=== PATIENT | male | born 1960 | race Caucasian/White ===

== ENCOUNTER 2017-12-13 10:27 | Day surgery (SDC) | payer BC ==
[~2017-12-13 10:27] MED LIST: LACTATED RINGERS 1,000 ML IV SCH
[2017-12-13 10:48] VITALS: RESP 16; TEMP 97.1
[2017-12-13] MEDS ORDERED: LACTATED RINGERS 1,000 ML IV ONE (10:49)
[2017-12-13] MEDS ORDERED: PROPOFOL 10 MG/ML 20 ML VIAL IV ONE (11:15)
--- NOTE | 2017-12-13 11:26 | P.GSHP ---
History of Present Illness H&P Date: 12/13/17 Chief Complaint: GERD This is a 57-year-old male with history of GERD and Rodriguez's esophagus. Patient presents today for EGD. Past Medical History Past Medical History: Asthma, GERD/Reflux, Hyperlipidemia, Osteoarthritis (OA) Additional Past Medical History / Comment(s): SEASONAL ALLERGIES. RODRIGUEZ'S ESOPHAGUS. History of Any Multi-Drug Resistant Organisms: None Reported Past Surgical History: Tonsillectomy Additional Past Surgical History / Comment(s): VASECTOMY Past Anesthesia/Blood Transfusion Reactions: No Reported Reaction Past Psychological History: No Psychological Hx Reported Smoking Status: Light tobacco smoker Past Alcohol Use History: Daily Additional Past Alcohol Use History / Comment(s): QUIT SMOKING CIGARETTES IN 2017, STILL SMOKES PIPE/CIGAR. SMOKED CIGS FOR 20 YRS. Past Drug Use History: None Reported Medications and Allergies Home Medications Medication Instructions Recorded Confirmed Type Albuterol Inhaler [Ventolin Hfa 1 puff INHALATION QID PRN 12/09/17 12/09/17 History Inhaler] Ascorbic Acid [Vitamin C] 1 tab PO DAILY 12/09/17 12/09/17 History Aspirin [Adult Low Dose Aspirin EC] 81 mg PO QAM 12/09/17 12/09/17 History Cholecalciferol [Vitamin D3] 1,000 unit PO DAILY 12/09/17 12/09/17 History Cyanocobalamin [Vitamin B-12] 1 tab PO DAILY 12/09/17 12/09/17 History Fluticasone/Salmeterol [Advair 1 puff INHALATION BID 12/09/17 12/09/17 History 250-50 Diskus] Ginseng 1 tab PO DAILY 12/09/17 12/09/17 History Glucosamine/Chondro Lombardo A [Cosamin 1 tab PO DAILY 12/09/17 12/09/17 History Ds Tablet] Montelukast [Singulair] 10 mg PO QAM 12/09/17 12/09/17 History Multivitamins, Thera [Multivitamin 1 tab PO DAILY 12/09/17 12/09/17 History (formulary)] Naproxen Sodium [Aleve] 440 mg PO QAM 12/09/17 12/09/17 History Omeprazole 40 mg PO QAM 12/09/17 12/09/17 History Selenium 1 tab PO DAILY 12/09/17 12/09/17 History Simvastatin [Simvastatin] 40 mg PO QAM 12/09/17 12/09/17 History Vitamin E 1 tab PO DAILY 12/09/17 12/09/17 History Allergies Allergy/AdvReac Type Severity Reaction Status Date / Time No Known Allergies Allergy Verified 12/09/17 08:12 Surgical - Exam Vital Signs Temp Pulse Resp BP Pulse Ox 97.1 F L 73 16 139/85 99 12/13/17 10:47 12/13/17 10:47 12/13/17 10:47 12/13/17 10:47 12/13/17 10:47 - General well developed, well nourished, no distress - Eyes PERRL - ENT normal pinna - Neck no masses - Respiratory normal expansion - Cardiovascular Rhythm: regular - Abdomen Abdomen: soft, non tender Assessment and Plan Assessment: GERD. We'll perform EGD.
--- NOTE | 2017-12-13 11:35 | P.OP ---
Date of Procedure: 12/13/17 Preoperative Diagnosis: GERD Postoperative Diagnosis: Mild antral gastritis Mild esophagitis No evidence of hiatal hernia Procedure(s) Performed: EGD Anesthesia: MAC Surgeon: Dileep Thompson Pathology: other (Antrum, esophagus) Condition: stable Disposition: PACU Description of Procedure: The patient's placed on the endoscopy table lateral position. He received IV sedation. The gastroscope was placed oropharynx and passed in the esophagus into the stomach. Scope was then placed through the pylorus. The first second portion of duodenum appeared normal. Scope was then brought back the antrum this. Mildly inflamed. A biopsies performed. The scope was retroflexed and remainder stomach appeared normal. There is no evidence of a hiatal hernia. The GE junction was at 40 cm. The distal esophagus was mildly inflamed a biopsies performed. The proximal esophagus appeared normal. Scope was withdrawn from the patient.
[2017-12-13 11:50] VITALS: BP 124/73; PULSE 75
== END 2017-12-13 12:20 | disposition home or self-care (01) ==
LOC: ORWHC2ENDO 10:27
PROVIDERS: ATTEND Surgery
DX: K21.0 Gastro-esophageal reflux disease with esophagitis (principal); K29.50 Unspecified chronic gastritis without bleeding; J45.909 Unspecified asthma, uncomplicated; E78.5 Hyperlipidemia, unspecified; M19.90 Unspecified osteoarthritis, unspecified site; F17.290 Nicotine dependence, other tobacco product, uncomplicated; Z79.82 Long term (current) use of aspirin; Z79.51 Long term (current) use of inhaled steroids; Z79.1 Long term (current) use of non-steroidal anti-inflammatories (NSAID); Z79.899 Other long term (current) drug therapy; Z87.19 Personal history of other diseases of the digestive system
CPT/HCPCS: 43239; 88305; J2704

== ENCOUNTER → 2017-12-21 | Outpatient (CLI) | payer BC ==
--- NOTE | 2017-12-21 11:14 | CT ---
"EXAMINATION TYPE: CT angio chest DATE OF EXAM: 12/21/2017 10:45 AM COMPARISON: CT chest 12/26/2013 is a 2 mm nodule lateral margin right upper lobe image 51. HISTORY: Elevated D-Dimer and Chest Pain CT DLP: 550 mGycm Automated exposure control for dose reduction was used. CONTRAST: CTA scan of the thorax is performed with IV Contrast, patient injected with 100 ml mL of Isovue 370, pulmonary embolism protocol. . FINDINGS: LUNGS: The lungs are grossly clear, there is no concerning consolidative pneumonia. There is a 6 mm n odule image 108 within the left lower lobe. 3 millimeter nodule right lower lobe superior segment. There is no pleural effusion or pneumothorax seen. The tracheobronchial tree is patent. MEDIASTINUM: There is satisfactory enhancement of the pulmonary artery and its branches, there is no CT evidence for pulmonary embolism. There are no greater than 1 cm hilar or mediastinal lymph nodes. There is mild prominence the origin of the aortic root measuring 4 cm compatible with mild aneurysma l dilation. OTHER: Hypertrophic and degenerative change of the spine. IMPRESSION: 1. No diagnostic evidence of pulmonary embolism 2. Mild aneurysmal dilation of the ascending aortic root measuring 4 cm. 3. Multiple 6 mm or less pulmonary nodules within the lungs. At least 2 of which appear to be stable from the prior exam and therefore are benign. The smallest nodule in the right upper lobe appears ne w from the prior exam and could be followed with a six-month CT scan. A [place] level critical message alert has been initiated for Reese Garcia MD via the [employer] | Critical Results System on 12/21/2017 11:09 AM. This message alert has been sent to Ryan Garcia MD via the preferences provided by the clinician for the receipt of Radiology Critical Findings. Message ID [id number]."
== END | disposition home or self-care (01) ==
LOC: RADCTMAIN 10:10
PROVIDERS: ATTEND Family Medicine
DX: R91.8 Other nonspecific abnormal finding of lung field (principal); R79.89 Other specified abnormal findings of blood chemistry
CPT/HCPCS: 71275; Q9967

== ENCOUNTER → 2018-01-03 | Outpatient (CLI) | payer BC ==
--- NOTE | 2018-01-04 00:08 | MR ---
EXAMINATION TYPE: MR angio head wo con DATE OF EXAM: 01/03/2018 COMPARISON: Headache HISTORY: Worsening neck pain, dizziness, myelopathy TECHNIQUE: Time of flight images focusing on the [place] were performed without contrast. FINDINGS: There is arterial flow in the internal carotid arteries bilaterally. There is arterial flow in the vertebrobasilar artery system. The basilar artery appears to fill only from the left vertebra l artery. The posterior cerebral arteries appear to derive essentially entire flow from the posterior communicating arteries. There is arterial flow in the anterior middle and posterior cerebral arterie s. There is a diminutive basilar artery. There is no mass effect. There is no evidence of aneurysm or neovascularity. There is no mass effect. There is no evidence of stenosis. IMPRESSION: There are large posterior communicating arteries which fill the posterior cerebral arteries. Negative MR angiogram of the brain.
== END | disposition home or self-care (01) ==
LOC: RADMRIMAIN 15:51
PROVIDERS: ATTEND Family Medicine
DX: R51 Headache (principal)
CPT/HCPCS: 70544

== ENCOUNTER → 2018-01-03 | Outpatient (CLI) | payer BC ==
--- NOTE | 2018-01-03 11:56 | ECHOS ---
STRESS ECHOCARDIOGRAM DATE OF SERVICE: 01/03/2018 INDICATIONS: Shortness of breath. MEDICATIONS: Singulair, atorvastatin, aspirin. BASELINE HEART RATE: 65 BASELINE BLOOD PRESSURE: 113/66 MAXIMUM HEART RATE: 142 MAXIMUM BLOOD PRESSURE: 166/97 85% MPHR: 137 100% MPHR: 161 METS: 12.1 MAXIMUM STAGE REACHED: 3 TOTAL EXERCISE TIME: 10:20 CLINICAL INFORMATION: Baseline EKG revealed normal sinus rhythm without significant ST-T changes. Patient walked on a standard Bharath protocol for 10 minutes 20 seconds, achieved a maximal heart rate of 142 beats per minute which is more than 85% of predicted maximum. He developed some fatigue and shortness of breath, but did not have any angina or arrhythmia. EKG did not reveal any ST-segment changes to indicate ischemia. By EKG criteria, this is a negative stress test with excellent exercise capacity. Baseline echo images revealed normal wall motion and wall thickening of all segments. At peak exercise, there was good augmentation of left ventricular wall motion and wall thickening of all segments suggesting that there is no evidence of stress-induced ischemia on this study. IMPRESSION: 1. Good exercise capacity with a negative stress test by EKG criteria. 2. Negative stress echocardiogram. MMODL / IJN: [id number] /
== END | disposition home or self-care (01) ==
LOC: RADNMMAIN 09:18
PROVIDERS: ATTEND Family Medicine
DX: R07.9 Chest pain, unspecified (principal); R06.02 Shortness of breath
CPT/HCPCS: 93351

== ENCOUNTER 2020-01-14 11:52 | Day surgery (SDC) | payer BC ==
[2020-01-11 12:21] VITALS: BMI 31.6
[~2020-01-14 11:52] MED LIST changes: +LIDOCAINE 1% (10MG/ML) FOR IV START INTRADERMA PRN
[2020-01-14 12:12] VITALS: RESP 16; TEMP 97
[2020-01-14] MEDS ORDERED: LIDOCAINE 1% INJ 10MG/ML (20 ML MDV) ONE (12:31)
[2020-01-14] MEDS ORDERED: PROPOFOL 10 MG/ML 20 ML VIAL IV ONE (12:31)
--- NOTE | 2020-01-14 12:56 | P.PCN ---
Date of Procedure: 01/14/20 Description of Procedure: BRIEF HISTORY: Patient is a 59-year-old male with a history of Barrios's esophagus presenting for outpatient EGD for evaluation of his Barrios's esophagus. A long-standing history, currently he is on omeprazole therapy fairly as well as Carafate and Pepcid. PROCEDURE PERFORMED: Esophagogastroduodenoscopy with biopsies. PREOPERATIVE DIAGNOSIS: Barrios's esophagus. ESTIMATED BLOOD LOSS: Minimal. IV sedation per anesthesia. PROCEDURE: After informed consent was obtained, the patient was brought into the endoscopy unit. IV sedation was administered by Anesthesia under continuous monitoring. Initially the Olympus GIF-190 video endoscope was inserted into the mouth. Esophagus intubated without any difficulty. It was gradually advanced into the stomach and duodenum and carefully examined. The bulb and the second part of the duodenum appeared normal. The scope at this time was withdrawn to the stomach, adequately insufflated with air, and upon careful examination, mucosa of the antrum, body, cardia and the fundus appeared normal, except for some mild scattered erythema in the antrum and body suggestive of mild gastritis with biopsies taken. A few diminutive polyps in the body of the stomach likely representing fundic gland polyps which were biopsied.. The scope was then withdrawn into the esophagus. The GE junction was located at 41 cm from the incisors, was a small 1 cm hiatal hernia noted. The esophagus appeared normal, except for short segment of Barrios's esophagus vigorously biopsied just proximal to the GE junction. There were no erosions or ulcerations seen and the patient tolerated the procedure well. IMPRESSION: 1. Short segment of Barrios's esophagus just proximal to the GE junction, biopsied. 2. Small hiatal hernia. 3. Gastric polyps biopsied, but representing fundic gland polyps in the setting of PPI use. 4. Mild gastritis antrum and body, biopsied. RECOMMENDATIONS: The findings of this examination were discussed with the patient. Okay to resume diet. Okay to resume medications. Await pathology from biopsies. Repeat EGD in 2-3 years for continued Barrios's surveillance, pending pathology from biopsies.
[2020-01-14 12:59] VITALS: PULSE 68
[2020-01-14 13:23] VITALS: BP 122/81
== END 2020-01-14 13:41 | disposition home or self-care (01) ==
LOC: ORWHC2ENDO 11:52
PROVIDERS: ATTEND Internal Medicine
DX: K22.70 Barrett's esophagus without dysplasia (principal); K21.0 Gastro-esophageal reflux disease with esophagitis; K31.7 Polyp of stomach and duodenum; K29.50 Unspecified chronic gastritis without bleeding; K44.9 Diaphragmatic hernia without obstruction or gangrene; E78.5 Hyperlipidemia, unspecified; J45.909 Unspecified asthma, uncomplicated; F17.200 Nicotine dependence, unspecified, uncomplicated; M19.90 Unspecified osteoarthritis, unspecified site; Z79.1 Long term (current) use of non-steroidal anti-inflammatories (NSAID); Z79.899 Other long term (current) drug therapy; Z79.82 Long term (current) use of aspirin; Z79.51 Long term (current) use of inhaled steroids; Z98.890 Other specified postprocedural states; Z98.52 Vasectomy status; Z90.89 Acquired absence of other organs; Z86.73 Personal history of transient ischemic attack (TIA), and cerebral infarction without residual deficits
CPT/HCPCS: 88305; 43239; J2001; J2704

== ENCOUNTER → 2020-11-28 | Outpatient (CLI) | payer BC ==
[2020-11-28 10:15] VITALS: BP 137/83; PULSE 77; RESP 18; TEMP 98.1
--- NOTE | 2020-11-28 10:46 | P.GSHP ---
History of Present Illness H&P Date: 11/28/20 Chief Complaint: right breast mass Jassi is a 59 year old male seen in consultation for Dr. Garcia regarding a right breast lump. The lump has been present for several years. It began to hurt last fall and so he had a bilateral mammogram performed on . This rev ealed chronic nodularity at the lateral aspect of the right breast measuring 7 mm and located 4.5 cm from the nipple at the 9 o'clock position. The finding was already present on a prior mammogram and suspected it might represent an intramammary lymph node. The patient did have a bilateral mammogram on 8618 as well and findings were consistent with gynecomastia. Lesions of concern were described in the left breast. The patient subsequently underwent an ultrasound of the right breast on . This revealed a 1.1 cm x 0.6 cm circumscribed mass. The findings were characteristic of a benign subcentimeter lymph node. This was felt to be benign finding and no further workup was felt to be necessary. It does not cause him any pain at this time. He has not had any trauma or infection in his best. He has not had any surgery on his breast. He does not complain of any testicular lumps masses or nodules. He has not had any recent changes in medications. Patient is on famotidine and Pepcid. No from Dr. Garcia appreciated and reviewed. Caffeine: 3 cups coffee/day nicotine: stopped 4 years ago, smokes pipe occasional Family History: father: melanoma patient: basal cell on nose Surgical History: Tonsillectomy Vasectomy polyp removed on colonoscopy Medical history: GERD Social History: Nicotine: stopped 4 years ago alcohol: 3 beers/day drugs: none - Constitutional Constitutional: Denies chills, Denies fever - EENT Eyes: denies blurred vision, denies pain Ears: deny: decreased hearing, tinnitus Ears, nose, mouth and throat: Denies headache, Denies sore throat - Breasts Breasts: bilateral: as per HPI - Cardiovascular Cardiovascular: Denies chest pain, Denies shortness of breath - Respiratory Comment: ? COPD Respiratory: Reports as per HPI - Gastrointestinal Comment: GERD Gastrointestinal: Reports diarrhea - Genitourinary (Male) Genitourinary: Denies dysuria, Denies hematuria - Musculoskeletal Comment: arthritis lower back, hips, knees , shoulders, neck Musculoskeletal: Denies myalgias - Integumentary Integumentary: Denies pruritus, Denies rash - Neurological Neurological: Denies numbness, Denies weakness - Psychiatric Psychiatric: Denies anxiety, Denies depression - Endocrine Endocrine: Denies fatigue, Denies weight change - Hematologic/Lymphatic Comment: none - Allergic/Immunologic Allergic/Immunologic: Reports seasonal allergies Past Medical History Past Medical History: Asthma, Cancer, GERD/Reflux, Hyperlipidemia, Os teoarthritis (OA) Additional Past Medical History / Comment(s): SEASONAL ALLERGIES. RODRIGUEZ'S ESOPHAGUS. SKIN CANCER History of Any Multi-Drug Resistant Organisms: None Reported Past Surgical History: Tonsillectomy Additional Past Surgical History / Comment(s): VASECTOMY, EGD Past Anesthesia/Blood Transfusion Reactions: No Reported Reaction Past Psychological History: No Psychological Hx Reported Smoking Status: Current some day smoker, Former smoker Past Alcohol Use History: Daily Additional Past Alcohol Use History / Comment(s): QUIT SMOKING CIGARETTES IN 2016, STILL SMOKES PIPE/CIGAR. SMOKED CIGS FOR 20 YRS-1PPD Past Drug Use History: None Reported Additional Drug Use History / Comment(s): CBD OIL -OIL DAILY - Past Family History Mother Family Medical History: No Reported History Medications and Allergies Home Medications Medication Instructions Recorded Confirmed Type Albuterol Inhaler (Mhu) [Ventolin 1 puff INHALATION QID PRN 12/09/17 01/11/20 History Hfa Inhaler (Mhu)] Ascorbic Acid [Vitamin C] 1 tab PO DAILY 12/09/17 01/11/20 History Aspirin [Adult Low Dose Aspirin EC] 81 mg PO QAM 12/09/17 01/11/20 History Cholecalciferol [Vitamin D3] 1,000 unit PO DAILY 12/09/17 01/11/20 History Cyanocobalamin [Vitamin B-12] 1 tab PO DAILY 12/09/17 01/11/20 History Fluticasone/Salmeterol [Advair 1 puff INHALATION DAILY 12/09/17 01/11/20 History 250-50 Diskus] Ginseng 1 tab PO DAILY 12/09/17 01/11/20 History Glucosamine/Chondro Lombardo A [Cosamin 1 tab PO DAILY 12/09/17 01/11/20 History Ds Tablet] Montelukast [Singulair] 10 mg PO QAM 12/09/17 01/11/20 History Multivitamins, Thera [Multivitamin 1 tab PO DAILY 12/09/17 01/11/20 History (formulary)] Naproxen Sodium [Aleve] 440 mg PO QAM 12/09/17 01/11/20 History Omeprazole 40 mg PO QAM 12/09/17 01/11/20 History Selenium 1 tab PO DAILY 12/09/17 01/11/20 History Vitamin E (Dl,Tocopheryl Acet) 1 tab PO DAILY 12/09/17 01/11/20 History [Vitamin E] Atorvastatin [Lipitor] 40 mg PO DAILY 01/11/20 01/11/20 History Cannabidiol (Cbd) [Epidiolex] 0 mg PO DAILY 01/11/20 01/11/20 History Famotidine [Pepcid] 20 mg PO DAILY 01/11/20 01/11/20 History Methylsulfonylmethane [MSM] 1,000 mg PO DAILY 01/11/20 01/11/20 History Sucralfate [Carafate] 1 gm PO QID 01/11/20 01/11/20 History Turmeric Root Extract [Turmeric] 1,053 mg PO DAILY 01/11/20 01/11/20 History Allergies Allergy/AdvReac Type Severity Reaction Status Date / Time No Known Allergies Allergy Verified 11/28/20 10:11 Surgical - Exam Vital Signs Temp Pulse Resp BP Pulse Ox 98.1 F 77 18 137/83 99 11/28/20 10:12 11/28/20 10:12 11/28/20 10:12 11/28/20 10:12 11/28/20 10:12 BMI 31.7 - General no distress - Eyes normal ocular movement - ENT normal pinna, normal mucosa - Neck no masses, trachea midline - Respiratory normal expansion, normal respiratory effort, clear to auscultation - Cardiovascular Rhythm: regular Heart Sounds: normal: S1, S2 - Abdomen Abdomen: soft - Genitourinary no testicular masses normal penis with no external lesions, testicles present - Integumentary normal turgor - Neurologic no disoriented, no combative - Musculoskeletal normal gait - Psychiatric oriented to time, oriented to person, oriented to place, speech is normal, memory intact Breast examination: Inspection: Bilateral enlargement of the breast most likely gynecomastia Palpation: Right breast: Fibrocystic/gynecomastia-like changes no discrete dominant masses or nodules of concern Right axilla: No adenopathy of concern Left breast: Fibrocystic/gynecomastia-like changes slight increased fullness in the lateral aspect of the left breast mildly tender to palpation Left axilla: No adenopathy of concern Results Mammogram and ultrasound of the breast independently reviewed Assessment and Plan Assessment: Impression: 1. Probable bilateral gynecomastia with some increased fullness in the left breast in the upper outer quadrant/periareolar area 2. Breast tenderness which has improved 3. Patient drinks alcohol several drinks per day 4. No medications which seemed to be causing the gynecomastia Plan: 1. Ultrasound left breast 2. Probable gynecomastia asymptomatic will be followed 3. Have encouraged patient to decrease alcohol consumption 4. Await results of ultrasound, if this is non-worrisome we'll see the patient again in 6 months for repeat evaluation, if anything changes prior to that would like to see him sooner CC: Dr. Garcia
--- NOTE | 2020-11-28 11:39 | USB ---
Reason for exam: clinical finding. US Breast LT Left complete breast ultrasound includes all four quadrants, the retroareolar region and axilla. Finding demonstrates no cystic or solid lesion seen. No sonographic finding left breast. ASSESSMENT: Benign, BI-RAD 2 RECOMMENDATION: Clinical management of the left breast. Manage patient on a clinical basis.
== END ==
LOC: WWCWWP 10:03
PROVIDERS: ATTEND Surgery
DX: N64.59 Other signs and symptoms in breast (principal); F10.20 Alcohol dependence, uncomplicated; J45.909 Unspecified asthma, uncomplicated; K21.9 Gastro-esophageal reflux disease without esophagitis; E78.5 Hyperlipidemia, unspecified; M19.90 Unspecified osteoarthritis, unspecified site; F17.200 Nicotine dependence, unspecified, uncomplicated; Z79.51 Long term (current) use of inhaled steroids; Z79.82 Long term (current) use of aspirin; Z79.899 Other long term (current) drug therapy

== ENCOUNTER → 2021-06-12 | Outpatient (CLI) | payer BC ==
--- NOTE | 2021-06-15 09:51 | USB ---
Reason for exam: clinical finding. Physical Findings: Nurse Summary: right 1cm palpable lump 8 o'clock (nurse mj). US Breast BILAT Technologist: Marianne Islas Right complete breast ultrasound includes all four quadrants, the retroareolar region and axilla. Finding demonstrates a 0.9 x 0.7 x 0.6cm lymph node at 9 o'clock BB and a 0.9cm lymph node at the axilla. Left complete breast ultrasound includes all four quadrants, the retroareolar region and axilla. Finding demonstrates a 0.7cm lymph node at the axilla. These results were verbally communicated with the patient and result sheet given to the patient on 06/12/21. ASSESSMENT: Negative, BI-RAD 1 RECOMMENDATION: Clinical management of both breasts. Manage patient on a clinical basis.
== END | disposition home or self-care (01) ==
LOC: RADUSWWP 14:18
PROVIDERS: ATTEND Surgery
DX: R92.8 Other abnormal and inconclusive findings on diagnostic imaging of breast (principal)

== ENCOUNTER → 2024-06-11 | Day surgery (SDC) | payer BC, MEDICARE ==
[~2024-06-11] MED LIST changes: -LACTATED RINGERS 1,000 ML IV SCH; -LIDOCAINE 1% (10MG/ML) FOR IV START INTRADERMA PRN; +PROPOFOL 10 MG/ML 20 ML VIAL IV ONE
[2024-06-11 12:19] VITALS: TEMP 97.8
[2024-06-11] MEDS: LACTATED RINGERS 1,000 ML IV SCH (12:24)
[2024-06-11] MEDS: IV FLUID CONTINUATION 1,000 ML IV ONE ×2 (12:24→14:32)
--- NOTE | 2024-06-11 14:54 | P.OP ---
Date of Procedure: 06/11/24 Preoperative Diagnosis: screening colonoscopy Postoperative Diagnosis: hemorrhoids Diverticulosis Right colon polyp Procedure(s) Performed: colonoscopy Anesthesia: MAC Surgeon: Dileep Thompson Pathology: other (right colon polyp) Condition: stable Disposition: PACU Description of Procedure: patient's placed on the endoscopy table lateral position. She received IV sedation. Digital rectal exam was performed. This revealed external hemorrhoids. Flexible colonoscope was then placed patient anus passed throughout the entire colon. Ileocecal valve visualized to large amount liquid stool in the right colon. T Visualized right colon there was a small polyp seen. This removed with the cold forcep. Scope was then brought back further in the transverse colon a few scattered diverticula. There is increased diverticular left and sigmoid colon. Scope back the rectum this appeared normal. Scope withdrawn for patient.
[2024-06-11 15:16] VITALS: BP 107/63; PULSE 75; RESP 16
== END | disposition home or self-care (01) ==
LOC: ORWHC2ENDO 11:50
PROVIDERS: ATTEND Surgery
DX: Z12.11 Encounter for screening for malignant neoplasm of colon (principal); D12.2 Benign neoplasm of ascending colon; K57.30 Diverticulosis of large intestine without perforation or abscess without bleeding; K64.4 Residual hemorrhoidal skin tags; E78.5 Hyperlipidemia, unspecified; J45.909 Unspecified asthma, uncomplicated; K21.9 Gastro-esophageal reflux disease without esophagitis; M19.90 Unspecified osteoarthritis, unspecified site; F17.200 Nicotine dependence, unspecified, uncomplicated; Z79.899 Other long term (current) drug therapy; Z98.890 Other specified postprocedural states
CPT/HCPCS: 88305; 45380; J2704

== ENCOUNTER → 2025-01-08 | Outpatient (CLI) | payer MEDICARE ==
--- NOTE | 2025-01-08 17:03 | US ---
EXAMINATION TYPE: US thyroid st tissue head/neck DATE OF EXAM: 01/08/2025 COMPARISON: NONE CLINICAL INDICATION: Male, 64 years old with history of R59.0 LOCALIZED ENLARGED LYMPH NODES, Z85.820 ; Bilateral palps under ear inferior to parotid gland TECHNIQUE: Soft tissue scan FINDINGS/IMPRESSION: Two normal appearing lymph nodes both measuring up to 6mm in largest dimension, fatty hilum with trace vascularity. These are consistent with benign lymph nodes. Additional 6mm ane choic thin-walled cyst noted on the right within inferior parotid gland. [facility] Sonali Barton, , 01/08/2025 5:01 PM
== END | disposition home or self-care (01) ==
LOC: RADUSWWP 16:40
PROVIDERS: ATTEND Internal Medicine
DX: E04.1 Nontoxic single thyroid nodule (principal); R59.0 Localized enlarged lymph nodes; Z85.820 Personal history of malignant melanoma of skin
CPT/HCPCS: 76536